=== PATIENT | female | born 1940 | race Caucasian/White ===

== ENCOUNTER → 2019-07-18 | Day surgery (SDC) | payer MEDICARE, OTHER ==
[~2019-07-18] MED LIST: ALLO100T PO; CERT400S SQ; CEVI30CA5 PO; DENO60DI SQ; DICL100G18 TP; FENO145T PO; FLUT9.9S NS; HYDR-2769 PO; HYDR25TA PO; IV RINGERS,LACTATED 1000ML 1,000 ML IV SCH; LEVO75TA PO; LORA10TA3 PO; MIRA25TA PO; OMEP40CA45 PO; PROPOFOL 20 ML IV ONE; ROPI1TAB4 PO; SALS500T11 PO; TELM1TAB3 PO
[2019-07-18 10:32] VITALS: BP 123/67
--- NOTE | 2019-07-19 12:06 | PATHOLOGY ---
[facility] Accession Number: [id number] . 01 Material submitted: . PART A: small bowel - SMALL BOWEL BX PART B: stomach - GASTRIC ANTRUM BODY BX PART C: esophagus - DISTAL ESOPHAGUS BX. Modifiers: distal PART D: esophagus - MID ESOPHAGUS BX. Modifiers: mid . 01 Clinical history: . Dysphagia . 02 Diagnosis: A. Small bowel biopsies: - No significant pathologic abnormalities. . B. Gastric biopsies, gastric antrum and gastric body: - Chronic gastritis, mild to moderate. . C. Esophageal biopsies, distal esophagus: - Segments of esophagogastric and gastric mucosa showing focal marked chronic inflammation. . D. Esophageal biopsy, middle esophagus: - Segments of hyperplastic squamous esophageal mucosa. (JPM:remedios; 07/19/2019) [facility] [place]19/[place] 0942 Local . 02 Comment: Sections of the small bowel biopsy reveal segments of duodenal mucosa. Where best oriented, the mucosal villi show no sprue-like changes or significant inflammatory changes. . Sections of the gastric biopsy reveal gastric antral and gastric body mucosa showing congestion and mild to moderate chronic inflammation. A properly controlled immunoperoxidase stain for Helicobacter is negative for Helicobacter organisms. . Sections of the distal esophageal biopsy reveal a segment of esophagogastric mucosa and a segment of gastric mucosa. The segment of esophagogastric mucosa consistents predominantly of gastric mucosa, and shows marked chronic inflammation. There is no evidence of Rawls's change, dysplasia, or malignancy. . Sections of the middle esophageal biopsy reveal segments of focally tangentially oriented hyperplastic squamous esophageal mucosa. There are scattered intraepithelial mononuclear inflammatory cells and a few neutrophils. The findings are consistent with reflux changes. There is no evidence of Rawls's change, dysplasia, or malignancy. (JPM:remedios; 07/19/2019) . . Special stain performed: Immunoperoxidase stain for Helicobacter on B1 . 02 Electronically signed: . Odilon Gan MD, Pathologist NPI- [id number] . 01 Gross description: . A. The specimen is received in formalin, labeled "Patsy, Radha, small bowel BX" and consists of 4 fragments of valladares tissue measuring 1.2 x 0.6 x 0.3 cm in aggregate which are entirely submitted in A1. . B. The specimen is received in formalin, labeled "Patsy, Radha, gastric antrum body BX" and consists of 3 fragments of pink-valladares tissue measuring between 0.3 x 0.2 cm and 0.6 x 0.3 cm which are entirely submitted in B1. . C. The specimen is received in formalin, labeled "Patsy, Radha, distal esophagus BX" and consists of 2 fragments of pink-valladares tissue measuring 0.2 x 0.2 cm and 0.5 x 0.2 cm which are entirely submitted in C1. . D. The specimen is received in formalin, labeled "Patsy, Radha, mid esophagus BX" and consists of 2 translucent fragments of pink-watkins tissue measuring 0.4 x 0.3 cm and 0.5 x 0.3 cm which are entirely submitted in D1. (SDY; 07/18/2019) SYU/SYU 07/18/2019 1647 Local . 02 Pathologist provided ICD-10: K29.50, K20.8 . 02 CPT . 584399, 398448, 770753, [id number], [id number] Specimen Comment: A courtesy copy of this report has been sent to [phone], [phone] Specimen Comment: [id number] Specimen Comment: Report sent to / DR SANDOVAL Performed at: 01 [facility] [address], [place] [id number] MD Anand Perez MD Phone: [phone] Performed at: 02 [facility] [address], [place] [id number] MD Odilon Gan MD Phone: [phone]
== END ==
LOC: SURG 09:01
PROVIDERS: ATTEND Internal Medicine Gastroenterology
DX: R13.10 Dysphagia, unspecified (principal); K29.50 Unspecified chronic gastritis without bleeding; K21.0 Gastro-esophageal reflux disease with esophagitis; K44.9 Diaphragmatic hernia without obstruction or gangrene; M79.7 Fibromyalgia; E78.00 Pure hypercholesterolemia, unspecified; K58.9 Irritable bowel syndrome, unspecified; G47.30 Sleep apnea, unspecified; I12.9 Hypertensive chronic kidney disease with stage 1 through stage 4 chronic kidney disease, or unspecified chronic kidney disease; E11.22 Type 2 diabetes mellitus with diabetic chronic kidney disease; N18.9 Chronic kidney disease, unspecified; F15.90 Other stimulant use, unspecified, uncomplicated; E03.9 Hypothyroidism, unspecified; D64.9 Anemia, unspecified; E66.9 Obesity, unspecified; Z68.32 Body mass index [BMI] 32.0-32.9, adult; Z88.6 Allergy status to analgesic agent; Z88.8 Allergy status to other drugs, medicaments and biological substances; Z87.39 Personal history of other diseases of the musculoskeletal system and connective tissue; Z90.710 Acquired absence of both cervix and uterus; Z90.49 Acquired absence of other specified parts of digestive tract; Z98.51 Tubal ligation status; Z96.653 Presence of artificial knee joint, bilateral; Z98.42 Cataract extraction status, left eye; Z98.41 Cataract extraction status, right eye; Z96.1 Presence of intraocular lens; Z79.84 Long term (current) use of oral hypoglycemic drugs
CPT/HCPCS: 43239; 43450; 88305; 88342; J2704